=== PATIENT | female | born 1990 | race Two or more races ===

== ENCOUNTER 2023-07-01 00:56 | Emergency (ER) | payer MEDICAID ==
[~2023-07-01] VITALS: Ht 172.7 cm; Wt 115.0 kg
[2023-07-01 01:28] VITALS: TEMP 98.3
[2023-07-01] MEDS: TraMADol HCL 50 MG TABLET PO ONE (02:17)
[2023-07-01] MEDS: KETOROLAC TROMETHAMINE 30 MG/ML VIAL IM ONE (02:17)
[2023-07-01] MEDS ORDERED: TRAM-559 PO (03:19)
[2023-07-01 03:47] VITALS: BP 128/76; PULSE 65; RESP 15
== END 2023-07-01 03:49 | disposition home or self-care (01) ==
LOC: EMS 00:58
DX: M23.92 Unspecified internal derangement of left knee (principal); F17.210 Nicotine dependence, cigarettes, uncomplicated
CPT/HCPCS: 99283; 29505; 73560; 96372; J1885

== ENCOUNTER 2023-07-13 12:49 | Emergency (ER) | payer MEDICAID ==
[~2023-07-13] VITALS: Ht 172.7 cm; Wt 90.9 kg
[~2023-07-13 12:49] MED LIST: TRAM-559 PO
[2023-07-13 16:22] VITALS: BP 131/72; PULSE 77; RESP 18; TEMP 98.3
[2023-07-13] MEDS ORDERED: NAPR-1025 PO (16:43)
== END 2023-07-13 18:05 | disposition home or self-care (01) ==
LOC: EMS 13:17
DX: M25.562 Pain in left knee (principal); M25.561 Pain in right knee; F17.210 Nicotine dependence, cigarettes, uncomplicated
CPT/HCPCS: 99283